=== PATIENT | female | born 1975 | race African-American/Black ===

== ENCOUNTER 2017-07-25 12:48 | Day surgery (SDC) | payer OTHER ==
[2017-07-25] MEDS ORDERED: Scopolamine 1.5 mg/72 hour Patch ONE (13:20)
[2017-07-25] MEDS ORDERED: Ketorolac Tromethamine 30 MG/ML VIAL ONE (13:20)
[2017-07-25] MEDS ORDERED: Fentanyl 250 MCG/5 ML VIAL ONE (13:28)
[2017-07-25] MEDS ORDERED: Sodium Chloride 0.9% 1,000 ML IV SCH (13:30)
[2017-07-25] MEDS ORDERED: Meropenem 1 GM, Admixture Fee 1 EACH in Sodium Chloride 0.9% 100 ML IVPB SCH (13:30)
[2017-07-25] MEDS ORDERED: Meropenem 2 GM, Admixture Fee 1 EACH in Sodium Chloride 0.9% 100 ML IVPB SCH (13:30)
[2017-07-25] MEDS ORDERED: Bupivacaine/Epinephrine 0.25% 30 ML VIAL ONE (13:40)
--- NOTE | 2017-07-25 14:23 | HP ---
DATE OF ADMISSION: 07/25/2017 HISTORY OF PRESENT ILLNESS: Brian Holguin is a 42-year-old black female, who in December prese nted to [facility] Emergency Room and was transferred to [facility], where a surge on treated her with intravenous antibiotics nonsurgical treatment for appendicitis for today. She wa s sent home without oral antibiotics and without followup. The patient states she did very well, but began having pain again more severe right lower quadrant. She presented to [facility] where the patient had a CAT scan demonstrating an enlarged appendix filled with air. Patient's whi te count is 10, hemoglobin 14, sodium 138, potassium 3.5, creatinine 0.8, BUN 7. ALLERGIES: PENICILLIN. TOBACCO: 1/2 pack per day. ALCOHOL: Occasionally. MEDICATIONS: She takes medication for cholesterol and hypertension. She does not recall the name. PAST SURGICAL HISTORY: Total abdominal hysterectomy, unilateral salpingo-oophorectomy, left ovary. PAST MEDICAL HISTORY: Hypertension, elevated cholesterol. REVIEW OF SYSTEMS: Ten-point noncontributory. SOCIAL HISTORY: Patient is a single mom of a 9-year-old. She works in [employer]. PHYSICAL EXAMINATION: GENERAL: Patient is in no acute distress. VITAL SIGNS: 140/82, 67 inches tall, BMI 37, 98 degrees, respiratory rate 20. HEAD, EYES, EARS, NOSE, AND THROAT: Unremarkable. LUNGS: Clear to auscultation. CARDIAC: Regular rate and rhythm without murmur or gallop. ABDOMEN: Soft, obese. Laparoscopic incisions consistent with laparoscopic-assisted hysterectomy. R ight lower quadrant tenderness with guarding. ASSESSMENT AND PLAN: History and exam consistent with a recurrent appendicitis. CAT scan is suspici ous for this. We would recommend laparoscopic video appendectomy. Risk of infection, bleeding, and reoperation explained. She consents.
[2017-07-25] MEDS ORDERED: Dexamethasone 20 MG/5 ML VIAL ONE (15:44)
[2017-07-25] MEDS ORDERED: Ondansetron HCl/PF 4 MG/2 ML Vial ONE (15:44)
[2017-07-25] MEDS ORDERED: Lidocaine 1% PF 5 ML VIAL ONE (15:44)
[2017-07-25] MEDS ORDERED: Succinylcholine Chloride 20 MG/ML 10 ml SYRINGE FS ONE (15:44)
[2017-07-25] MEDS ORDERED: Propofol 200 MG/20 ML VIAL ONE (15:44)
[2017-07-25] MEDS ORDERED: Fentanyl 100 MCG/2 ML VIAL ONE (16:51)
--- NOTE | 2017-07-25 17:40 | OP ---
DATE OF PROCEDURE: 07/25/2017 PREOPERATIVE DIAGNOSES: Right lower quadrant pain, previous treatment nonsurgical for appendicitis, [facility], enlarged appendix on CAT scan, tenderness in right lower quadra nt. POSTOPERATIVE DIAGNOSES: Right lower quadrant pain, previous treatment nonsurgical for appendicitis, [facility], enlarged appendix on CAT scan, tenderness in right lower quadr ant. PROCEDURES: Laparoscopic video appendectomy with laparoscopic evaluation of abdominal cavity, really normal terminal ileum, normal remaining right ovary (status post hysterectomy and left oophorectomy) , normal colon and small bowel. SURGEON: Rudi Vazquez M.D. ANESTHESIA: General. Local 0.25% Marcaine with epinephrine, 30 mL DESCRIPTION OF PROCEDURE: The patient was taken to the operating room where under general anesthesia , a Guy catheter was placed at the beginning of the procedure and removed at the end. Abdomen was prepared with chloraprep, draped in routine fashion. Local anesthetic was infiltrated into skin and subcutaneous tissue about each port site. Infraumbilical incision was made and pneumoperitoneum to 1 5 mmHg obtained with the Veress needle, replacing it with a 5 port. Video laparoscope inserted. Rig ht lateral subcostal incision was made and a [address] Suprapubic incision was made and a 12 por t placed. Appendix was identified and noted to be enlarged, but it did not have any evidence of infl ammation and mesoappendix was taken down with the LigaSure. The stump of the appendix dividing the c ecal stump with Endo-JOSY blue load stapler. Stapled cecal stump was hemostatic and secure as the ruthie endix removed and submitted to pathology. The terminal ileum was evaluated for the last 4-5 feet not ed to be normal. Colon was noted be normal. Right ovary was noted to be normal. She had had a prio r hysterectomy and left salpingo-oophorectomy. No other abnormalities were noted. There was no scar tissue into the pelvis. The patient tolerated the procedure well without complications. Suprapubic fascia was approximated with 0 Vicryl GraNee needle. Irrigant and pneumoperitoneum evacuated. Good hemostasis ensured. All skin incisions were approximated with interrupted subdermal 4-0 Monocryl an d DermaGlue applied.
[2017-07-25] MEDS ORDERED: Ondansetron ODT 4 MG TAB ONE (18:22)
== END 2017-07-25 18:40 | disposition home or self-care (01) ==
LOC: SDC 12:48
PROVIDERS: ATTEND Specialist
PROC: 0DTJ4ZZ Resection of Appendix, Percutaneous Endoscopic Approach (ICD-10-PCS; principal; 2017-07-25)
DX: K36 Other appendicitis (principal); F17.210 Nicotine dependence, cigarettes, uncomplicated; I10 Essential (primary) hypertension; E78.00 Pure hypercholesterolemia, unspecified; Z79.899 Other long term (current) drug therapy; Z90.710 Acquired absence of both cervix and uterus; Z90.721 Acquired absence of ovaries, unilateral
CPT/HCPCS: 88304; 96374; J0131; J1100; J1885; J2001; J2185; J2405; J2704; J3010; J7050; Q0162